=== PATIENT | female | born 1995 | race Caucasian/White ===

== ENCOUNTER 2023-07-14 08:29 | Inpatient (IN) ==
[2023-07-14] MEDS ORDERED: OXYTOCIN 30 UNITS/500 ML BAG IV PRN ×3 (11:57→21:03)
[2023-07-14] MEDS ORDERED: LIDOCAINE 1% LOCAL 20 ML VIAL INFIL PRN (11:57)
--- NOTE | 2023-07-14 11:59 | History & Physical Report ---
Date of Service July 14, 2023 Assessment & Plan (1) Encounter for supervision of normal in multigravida: (2) Marijuana use during : (3) Thrombocytopenia affecting : Plan admit for induction. pitocin induction, arom when indicated, desires epidual--cbc/coags pending, but expect will be ok given nl 6 days ago. Anticipate . Admission and Anticipated Discharge Date Admission Date: July 14, 2023 History of Present Illness Chief Complaint: iol Primary Care Provider: Nilsa Ledesma Eligio Patient is a 27yowf who presents at 39 1/7 weeks for iol for hx of low platelets, see below. Notes no labor symptoms, good fm. no contractions. and Delivery Plans THC use in for nausea, has not stopped by 32wk *UDS on admission to L&D Thrombocytopenia--> now on course of b12 and dexamethasone x 4d. Induction sched for 07/14 *Plt 103 on NOB labs *Referred to [facility], saw them week of 03/26, records not yet received. Per pt: no further care planned? *28 weeks: 89 *32 weeks : 91 *38 weeks: 129 repeat in 4 wks. Heme Consult (06/17/23) Ovarian cyst and CRESENCIO seen early in *Resolved prior to transfer to [facility] BLOOD DONOR RECRUITER Needs MMR PP OB Labs: Hemoglobin 12.5 g/dl (12.0-16.0) 07/10/23 Hematocrit 37.3 % (37.0-47.0) 07/10/23 Mean Corpuscular Volume 91.9 fL (80.0-100.0) 07/10/23 Platelet Count 129 K/uL (130-400) L 07/10/23 Glucose 1 Hour 50 gm Load 131 mg/dl (70-130) H 04/29/23 OB Optional Labs: No Data to Display Independent Interpretation Lab Interpretation: Initial OB Labs 12/10/22 Blood Type & RH O positive Antibody Screen negative HCT/HGB 39.8/13.5 Platelets 103 Hep C IgG 13yrs+ Old non reactive Pap Test 11/07/20 ASCUS Chlamydia not detected Gonorrhea not detected Rubella non-immune ISR RPR nonreactive Urine Culture/Screen <30,000 Col/ML HBsAg non reactive HIV non reactive MCV 90.2 Ultrasound 12/25/22 Ultrasound anatomy US 03/13/23 SMA/CF negative 02/03/23 Quad normal 02/03/23 28 week 2 hr gtt wnl--akh gbs neg Allergies Allergy/AdvReac Type Severity Reaction Status Date / Time No Known Allergies Allergy Verified 07/11/23 10:20 Home Medications Medication Instructions Recorded Confirmed Type 21-iron fu-folic acid 1 tab PO DAILY 04/01/23 07/14/23 History [ Complete] ondansetron HCl 4 mg tablet 4 mg PO Q8H PRN nausea and 05/29/23 07/14/23 Rx vomiting #20 tabs dexamethasone 4 mg tablet 4 mg PO DAILY 07/14/23 07/14/23 History Patient History Medical History Chicken pox Ovarian cyst Thrombocytopenia Surgical History S/P dilation and curettage x2 in 2019 and 2021. S/P wisdom tooth extraction Family History Grandfather Diabetes Father Asthma Sister Asthma Aunt Asthma Denies family history of Ovarian cancer Breast cancer Colorectal cancer Social History Smoking Status: Never smoker Hx Alcohol Use: Yes Hx Substance Use: Yes Non-Prescribed Medications: Marijuana Last Used Substance: Days (ago) Last Used Substance Other:: 2 weeks ago Substance Use Type Other:: Patient states she used marijuana one week ago for nausea. Preferred Language: French Communication Ability: Effective Booking Supervisor Required: No Beliefs That Will Affect Care: None marital status: Single marital status details: mother Cristine Thornton [phone] Current Living Situation: Alone Current Living Situation Comment: Lives alone with her 2 sons. 8yo and 5yo current occupational status: employed current occupation: [employer] Feels Safe at Home: Yes Safety Concerns: Feels Safe At This Time Assistive Devices: None OB History Past Pregnancies Del. Date GA wks Lbr Lgth wt Sex Type del Anes Place Del Prov ? Comment Unknown Aborted-Spontaneous 2019 Unknown 7 Aborted-Spontaneous &E 06/27/15 40 7lbs M Other [place] 11/14/17 40 8lbs 9oz M Ot her [employer] History noncontributory Physical Exam Constitutional: WD/WN, vitals as above Gastrointestinal (Abdomen): soft, nt, gravid Psychiatric: A+Ox3, euthymic affect Genitourinary: cx--3/75/-2/mid/soft toco--maurisio efm--150s with mod variability, accels to 180s, no decels. Coding Level of Care Code None Diagnoses Encounter for supervision of normal in multigravida Z34.80 Marijuana use during O99.320; F12.90 Thrombocytopenia affecting O99.119; D69.6
[2023-07-14 12:42] LABS: Hematocrit (blood only) 38.8 % (37.0-47.0); Hemoglobin 12.9 g/dl (12.0-16.0); Mean Corpuscular Hemoglobin 30.1 pg (25.0-34.0); Mean Corpuscular Hgb Conc 33.2 g/dL (32.0-36.0); Mean Corpuscular Volume 90.7 fL (80.0-100.0); Mean Platelet Volume 12.9 fL (9.4-12.4); Platelet Count 117 K/uL (130-400); RDW Coefficient of Variation 12.8 % (11.5-14.5); RDW Standard Deviation 41.6 fL (36.4-46.3); Red Blood Count 4.28 M/uL (4.20-5.40); White Blood Count 7.68 K/ul (4.8-10.8)
[2023-07-14] MEDS: LACTATED RINGER'S 1,000 ML IV PRN ×2 (12:57→16:48)
[2023-07-14 13:20] LABS: INR 0.9 (0.9-1.1); Partial Thromboplastin Ratio 0.9; Partial Thromboplastin Time 26.7 Seconds (21.0-31.0); Prothrombin Time 9.9 Seconds (9.0-12.0)
[2023-07-14 13:27] LABS: Amphetamines+Metham, Urine Neg (Neg); Barbiturates, Urine Neg (Neg); Benzodiazepine, Urine Neg (Neg); Cocaine, Urine Neg (Neg); MDMA (Ecstacy), Urine Neg (Neg); Methadone, Urine Neg (Neg); Opiate, Urine Neg (Neg); Phencyclidine, Urine Neg (Neg)
[2023-07-14] MEDS ORDERED: fentaNYL citrate PF 100 MCG/2 ML VIAL ONE (16:16)
[2023-07-14] MEDS ORDERED: fentANYL 2 MCG/ML BUPIVacaine 0.125%-NSS 100ML BAG ONE (16:17)
[2023-07-14] MEDS ORDERED: LIDOCAINE 2%/EPINEPHRINE 1:200,000 20 ML PF ONE (16:17)
[2023-07-14] MEDS ORDERED: BUPIVACAINE 0.25% PF 30 ML VIAL ONE (16:17)
[2023-07-14] MEDS ORDERED: ePHEDrine sulfate 50 MG/ML AMP ONE (16:17)
[2023-07-14] MEDS ORDERED: SODIUM CHLORIDE 0.9% PF INJ 10 ML VIAL ONE (16:17)
[2023-07-14] MEDS ORDERED: LIDOCAINE 2% MPF LOCAL 5 ML VIAL EPI PRN (16:40)
[2023-07-14] MEDS ORDERED: fentaNYL citrate PF 100 MCG/2 ML VIAL EPI PRN (16:40)
[2023-07-14] MEDS ORDERED: NALOXONE HCL 1 MG in SODIUM CHLORIDE 0.9% 1,000 ML IV PRN (16:40)
[2023-07-14] MEDS ORDERED: LIDOCAINE 2%/EPINEPHRINE 1:200,000 20 ML PF EPI STA (16:40)
[2023-07-14] MEDS ORDERED: fentaNYL citrate PF 100 MCG/2 ML VIAL EPI STA (16:40)
[2023-07-14] MEDS ORDERED: BUPIVACAINE 0.25% PF 30 ML VIAL EPI STA (16:40)
[2023-07-14] MEDS ORDERED: NALBUPHINE HCL INJ 10 MG/ML AMP IV PRN (16:40)
[2023-07-14] MEDS ORDERED: ePHEDrine sulfate 50 MG/ML AMP IV PRN (16:40)
[2023-07-14] MEDS ORDERED: PROMETHAZINE HCL 6.25 MG in SODIUM CHLORIDE 0.9% 50 ML IV PRN (16:40)
[2023-07-14] MEDS ORDERED: diphenhydrAMINE 50 MG/ML VIAL IV PRN (16:40)
[2023-07-14] MEDS ORDERED: fentANYL 2 MCG/ML BUPIVacaine 0.125%-NSS 100ML BAG EPI PRN (16:40)
[2023-07-14] MEDS ORDERED: ONDANSETRON INJ 2 MG/ML 2 ML VIAL IV PRN (16:40)
[2023-07-14] MEDS ORDERED: ROPIVACAINE 0.5% PF 5 MG/ML 20 ML VIAL EPI PRN (16:40)
[2023-07-14] MEDS ORDERED: NALOXONE HCL 0.4 MG/1 ML VIAL/CARP IV PRN (16:40)
[2023-07-14] MEDS ORDERED: SODIUM CHLORIDE 0.9% PF INJ 10 ML VIAL EPI PRN (16:40)
[2023-07-14] MEDS ORDERED: SODIUM CHLORIDE 0.9% PF INJ 10 ML VIAL EPI STA (16:40)
[2023-07-14] MEDS ORDERED: BUPIVACAINE 0.25% PF 30 ML VIAL EPI PRN (16:40)
--- NOTE | 2023-07-14 16:42 | Anesthesiology Consultation ---
Date of Service July 14, 2023 Assessment & Plan (1) Encounter for pre-operative examination: Chart Review Chart Review: Patient NOT seen in Pre Admission Testing and Acceptable Risk for Labor Epidural Consults Requested none History Height/Weight Height: 5 ft 5 in Weight: 76.921 kg Allergies Allergy/AdvReac Type Severity Reaction Status Date / Time No Known Allergies Allergy Verified 07/11/23 10:20 Medications Home Medications Medication Instructions Recorded Confirmed Last Taken 21-iron fu-folic acid 1 tab PO DAILY 04/01/23 07/14/23 07/14/23 [ Complete] ondansetron HCl 4 mg tablet 4 mg PO Q8H PRN nausea and 05/29/23 07/14/23 07/13/23 vomiting #20 tabs dexamethasone 4 mg tablet 4 mg PO DAILY 07/14/23 07/14/23 07/04/23 Active Medications Generic Name Dose Route Start Last Admin Trade Name Freq PRN Reason Stop Dose Admin Lactated Ringer's 1,000 mls @ 125 mls/hr 07/14/23 11:57 07/14/23 16:48 Lr IV 07/16/23 11:56 999 mls/hr .Q8H PRN Administration L&D Protocol Protocol Oxytocin 30 units in 500 mls @ 9 mls/hr 07/14/23 13:22 07/14/23 16:00 Pitocin IV 07/16/23 13:21 0.54 units/hr .Q24H PRN 9 mls/hr Labor Induction/Augmentation Titration Protocol 0.54 UNITS/HR Past Medical History Medical History (Updated 07/14/23 @ 16:42 by Louie Estes MD) Chicken pox Encounter for pre-operative examination Ovarian cyst Thrombocytopenia Past Family History Family History Grandfather Diabetes Father Asthma Sister Asthma Aunt Asthma Denies family history of Ovarian cancer Breast cancer Colorectal cancer Past Surgical History Surgical History S/P dilation and curettage x2 in 2019 and 2021. S/P wisdom tooth extraction Social History Smoking Status: Never smoker Hx Alcohol Use: Yes Hx Substance Use: Yes substance use type: marijuana Substance Use Type Other:: Patient states she used marijuana one week ago for nausea. Last Used Substance: Days (ago) Last Used Substance Other:: 2 weeks ago Physical Exam Vital Signs Last Vital Signs Temp 36.8 C 07/14/23 12:09 Pulse 85 07/14/23 17:04 Resp 16 07/14/23 12:09 BP 127/71 07/14/23 17:04 Pulse Ox 100 07/14/23 17:00 Testing Laboratory Results 07/14/23 12:17 PT 9.9 Seconds (9.0-12.0) 07/14/23 12:17 INR 0.9 (0.9-1.1) 07/14/23 12:17 APTT 26.7 Seconds (21.0-31.0) 07/14/23 12:17
--- NOTE | 2023-07-14 20:11 | Delivery Summary ---
Vaginal Delivery Summary Date of Service July 14, 2023 Vaginal Delivery Summary Patient induced at 39 weeks initially was 3 to 4 cm Pitocin was started requested epidural and then however artificial rupture of membranes she shortly progressed to fully dilated pushed over just 1 contraction delivery baby in occiput anterior position once baby's head was delivered mouth and the nares suctioned with bulb gentle traction on the baby no excessive force easy delivery live vigorous female cord clamped and cut cord blood obtained placenta removed with gentle traction IV Pitocin started uterine tone improved there was no tearing sponge and instrument counts correct estimated blood blood loss 100 mL [facility] Vaginal Delivery Charge Delivery Type Details:
[2023-07-14] MEDS ORDERED: BENZOCAINE 20% SPRY 85 APPLN/85 GM CAN EXT PRN (21:03)
[2023-07-14] MEDS ORDERED: DIPHTHERIA/TETANUS/PERTUSSIS Vaccine (Tdap, Age 7+yrs) 0.5mL SYR/VL IM ONE (21:03)
[2023-07-14] MEDS ORDERED: ACETAMINOPHEN 325 MG TAB PO PRN (21:03)
[2023-07-14] MEDS ORDERED: HYDROCORTISONE ACETATE 25 MG SUPP PR PRN (21:03)
[2023-07-14] MEDS ORDERED: bisacodyL 10 MG SUPP PR PRN (21:03)
[2023-07-14] MEDS ORDERED: ONDANSETRON 4 MG OD TAB PO PRN (21:07)
--- NOTE | 2023-07-14 21:21 | Anesthesia Procedure Note ---
Date of Service July 14, 2023 Anesthesia Post Epidural Note Vital Signs Vital Signs: Temp Pulse Resp BP Pulse Ox 36.6 C 99 H 18 125/60 100 07/14/23 18:00 07/14/23 20:56 07/14/23 19:00 07/14/23 20:56 07/14/23 20:01 Notes Mental Status: alert / awake / arousable and participated in evaluation Patient Amnestic to Procedure: No Nausea / Vomiting: adequately controlled Pain: adequately controlled Airway Patency, RR, SpO2: stable & adequate BP & HR: stable & adequate Hydration State: stable & adequate Neuraxial Anesthesia: was administered and sensory block is resolving Anesthetic Complications: no major complications apparent and Pt Satisfied with anesthetic care Epidural: Removed without complications and With tip intact
[2023-07-14] MEDS: IBUPROFEN 600 MG TAB PO PRN ×2 (22:13→22:15)
[2023-07-14] MEDS: DOCUSATE SODIUM 100 MG CAP PO SCH (22:13)
--- NOTE | 2023-07-15 06:58 | Obstetrical Progress Note ---
Date of Service <Malorie Kent MD - Last Filed: 07/15/23 08:06> July 15, 2023 Assessment & Plan <Malorie Kent MD - Last Filed: 07/15/23 08:06> (1) Encounter for assessment: Plan Patient with the above mentioned history and findings was evaluated at bedside and found awake, alert, oriented in all spheres, afebrile, and in no acute distress. Vital signs showed no fever and blood pressures remained stable and she has remained without symptoms of severity (e.g. vision changes, headaches, oliguria, etc.). Her blood type is O positive and today's hemoglobin is adequate at 11.7 g/dL. She is GBS negative and Rubella non-immune, for which she will be given the MMR vaccine pp. Overall, patient is doing well clinically and meeting the desired milestones. Will continue current pp care. Should she remain clinically and hemodynamically stable, will consider discharge tomorrow with follow up with her OB in 6 weeks for routine pp evaluation. All questions were answered. <Quinton Jack MD, FACOG - Last Filed: 07/15/23 08:04> (1) Encounter for assessment: Subjective <Malorie Kent MD - Last Filed: 07/15/23 08:06> Elizabeth is a 27 y/o female who is now PPD # 1 following at 39 1/7 wga after IOL due to thrombocytopenia (s/p 4d of B12 and Dexamethasone). Reports feeling well overall this morning. Refers moderate abdominal cramping & 4/10 pain well managed on analgesics. She is voiding spontaneously without difficulty. She has passed flatus but has not yet had a bowel movement. Tolerati ng meals overnight and able to ambulate some. Some persistent lochia with some improvement this morning. She is and supplementing with bottle feeds. Constitutional: no fever, no chills or no sweats Denies shortness of breath or difficulty breathing Cardiovascular: no chest pain or no palpitations Breast: no breast pain Genitourinary (female): no dysuria Neurologic: no headache(s) Denies changes in vision Physical Exam <Malorie Kent MD - Last Filed: 07/15/23 08:06> General: Alert. Oriented to person, time, and place. Afebrile. No acute distress. Eyes: pupils equal and reactive to light bilaterally, extraocular movements intact. Cardiac: Regular rate and rhythm, no murmurs/rubs/gallops. Respiratory: Clear to auscultation bilaterally a/p, no wheezes/rales/rhonchi. No increased work of breathing. Symmetrical chest rise. No respiratory distress. Abdomen: Soft, nontender, nondistended. Bowel sounds present. Uterus: Uterine fundus firm, non-tender, and palpable 2 cm below umbilicus. Lower Extremities: Slight lower extremity swelling without pitting. No deep calf pain. Luis M's negative bilaterally. Psych: Euthymic affect. Mood and affect congruence. Regular speech rate and content. Results & Data <Malorie Kent MD - Last Filed: 07/15/23 08:06> Vital Signs (Past 12 Hours) Vital Signs Temp Pulse Pulse Resp BP BP Pulse Ox 07/15/23 03:15 36.6 C 71 16 106/69 98 07/15/23 00:15 36.7 C 87 16 107/73 98 07/14/23 22:10 88 134/70 07/14/23 21:56 100 H 123/80 07/14/23 21:26 83 130/62 07/14/23 20:56 99 H 125/60 07/14/23 20:26 97 H 115/67 07/14/23 20:16 96 H 118/76 07/14/23 20:14 93 H 159/100 H 07/14/23 20:05 80 114/68 07/14/23 20:01 84 100 07/14/23 19:56 82 98 07/14/23 19:51 78 100 07/14/23 19:50 77 118/72 07/14/23 19:46 76 100 07/14/23 19:41 78 100 07/14/23 19:36 100 07/14/23 19:36 78 07/14/23 19:36 76 110/69 07/14/23 19:30 85 100 07/14/23 19:25 83 100 07/14/23 19:20 86 100 07/14/23 19:21 80 127/93 07/14/23 19:15 107 H 100 07/14/23 19:10 92 H 99 07/14/23 19:06 104 H 120/69 07/14/23 19:05 91 H 100 07/14/23 19:00 87 18 100 07/14/23 18:55 85 100 O2 Del Method 07/15/23 03:15 Room Air 07/15/23 00:15 Room Air 07/14/23 22:10 07/14/23 21:56 07/14/23 21:26 07/14/23 20:56 07/14/23 20:26 07/14/23 20:16 07/14/23 20:14 07/14/23 20:05 07/14/23 20:01 07/14/23 19:56 07/14/23 19:51 07/14/23 19:50 07/14/23 19:46 07/14/23 19:41 07/14/23 19:36 07/14/23 19:36 07/14/23 19:36 07/14/23 19:30 07/14/23 19:25 07/14/23 19:20 07/14/23 19:21 07/14/23 19:15 07/14/23 19:10 07/14/23 19:06 07/14/23 19:05 07/14/23 19:00 07/14/23 18:55 <Quinton Jack MD, FACOG - Last Filed: 07/15/23 08:04> Co-Signing Physician Notes Resident Physician Supervision Note: I was present with Dr. Kent during the history and exam. I discussed the case with the resident and agree with the findings and plan as documented in the note. Any exceptions or clarifications are listed here: [None] Documented By: Quinton Jack MD, FACOG Resident Activity Tracking <Malorie Kent MD - Last Filed: 07/15/23 08:06> Resident Involvement: Resident Care Provided Care Provided: OB Delivery
[2023-07-15] MEDS ORDERED: MEASLES, MUMPS & RUBELLA VIRUS VACCINE (MMR) VIAL SQ ONE (07:26)
[2023-07-15 08:05] LABS: Hematocrit (blood only) 34.4 % (37.0-47.0); Hemoglobin 11.7 g/dl (12.0-16.0); Mean Corpuscular Hemoglobin 30.8 pg (25.0-34.0); Mean Corpuscular Volume 90.5 fL (80.0-100.0); Mean Platelet Volume 13.2 fL (9.4-12.4); Platelet Count 104 K/uL (130-400); RDW Coefficient of Variation 12.7 % (11.5-14.5); RDW Standard Deviation 41.2 fL (36.4-46.3); White Blood Count 8.38 K/ul (4.8-10.8)
[2023-07-15] MEDS: DOCUSATE SODIUM 100 MG CAP PO SCH ×2 (09:19→20:19)
[2023-07-15] MEDS: IBUPROFEN 600 MG TAB PO PRN ×2 (09:20→23:49)
[2023-07-15] MEDS: PRENATAL VITAMIN 1 TAB PO SCH (09:20)
[2023-07-15] MEDS ORDERED: bisacodyL 5 MG TABEC PO SCH (20:00)
--- NOTE | 2023-07-16 07:20 | Obstetrical Progress Note ---
Date of Service <Malorie Kent MD - Last Filed: 07/16/23 08:08> July 16, 2023 Assessment & Plan <Malorie Kent MD - Last Filed: 07/16/23 08:08> (1) Encounter for assessment: Plan Patient with the above mentioned history and findings was evaluated at bedside and found awake, alert, oriented in all spheres, afebrile, and in no acute distress. Vital signs showed no fever and blood pressures remained stable and she has remained without symptoms of severity (e.g. vision changes, headaches, oliguria, etc.). Her blood type is O positive and most recent hemoglobin is adequate at 11.7 g/dL. She is GBS negative and Rubella non-immune, for which she was given MMR vaccine pp. Overall, patient is doing well clinically and meeting the desired milestones. Since she is clinically and hemodynamically stable, will discharge today with follow up with her OB in 6 weeks for routine pp evaluation. Discharge instructions discussed. All questions were answered. <Adama Edwards MD - Last Filed: 07/16/23 08:14> (1) Encounter for assessment: Subjective <Malorie Kent MD - Last Filed: 07/16/23 08:08> Elizabeth is a 27 y/o female who is now PPD # 2 following at 39 1/7 wga after IOL due to thrombocytopenia (s/p 4d of B12 and Dexamethasone). Reports feeling well overall this morning. Refers mild abdominal cramping & 1/10 pain well managed on analgesics. She is voiding spontaneously without difficulty. She has passed flatus but has not yet had a bowel movement. Tolerating meals overnight and able to ambulate some. Some persistent lochia with some improvement this morning. She is and supplementing with bottle feeds. Constitutional: no fever, no chills or no sweats Denies shortness of breath or difficulty breathing Cardiovascular: no chest pain or no palpitations Breast: no breast pain Genitourinary (female): no dysuria Neurologic: no headache(s) Denies changes in vision Physical Exam <Malorie Kent MD - Last Filed: 07/16/23 08:08> General: Alert. Oriented to person, time, and place. Afebrile. No acute distress. Eyes: pupils equal and reactive to light bilaterally, extraocular movements intact. Cardiac: Regular rate and rhythm, no murmurs/rubs/gallops. Respiratory: Clear to auscultation bilaterally a/p, no wheezes/rales/rhonchi. No increased work of breathing. Symmetrical chest rise. No respiratory distress. Abdomen: Soft, nontender, nondistended. Bowel sounds present. Uterus: Uterine fundus firm, non-tender, and palpable below umbilicus. Lower Extremities: Slight lower extremity swelling without pitting. No deep calf pain. Luis M's negative bilaterally. Psych: Euthymic affect. Mood and affect congruence. Regular speech rate and cont ent. Results & Data <Malorie Kent MD - Last Filed: 07/16/23 08:08> Vital Signs (Past 12 Hours) Vital Signs Temp Pulse Resp BP Pulse Ox O2 Del Method 07/15/23 23:45 36.9 C 77 16 98/61 L 97 Room Air 07/15/23 19:35 36.6 C 94 H 18 100/62 98 Room Air <Adama Edwards MD - Last Filed: 07/16/23 08:14> Co-Signing Physician Notes Patient seen and evaluated with resident and agree with the above findings and plan. Stable for discharge Resident Activity Tracking <Malorie Kent MD - Last Filed: 07/16/23 08:08> Resident Involvement: Resident Care Provided Care Provided: OB Delivery
[2023-07-16] MEDS: PRENATAL VITAMIN 1 TAB PO SCH (07:24)
[2023-07-16] MEDS: DOCUSATE SODIUM 100 MG CAP PO SCH (07:24)
[2023-07-16] MEDS ORDERED: MEASLES, MUMPS & RUBELLA VIRUS VACCINE (MMR) VIAL ONE (09:01)
== END 2023-07-16 10:35 | disposition home or self-care (01) | DRG 807 ==
LOC: 4S1 11:54 → 4E2 23:08